=== PATIENT | female | born 1935 | race Caucasian/White ===

== ENCOUNTER 2023-12-25 14:37 | Emergency (ER) | payer OTHER ==
[~2023-12-25] VITALS: Ht 162.6 cm; Wt 63.5 kg
[2023-12-25 15:45] LABS: BASOPHILS % 0.5 % (0.0-1.0); EOSINOPHILS # (AUTO) 0.1 (0.0-0.4); HEMATOCRIT 37.4 % (34.2-44.1); HEMOGLOBIN 12.8 g/dL (12.0-16.0); LYMPHOCYTES # (AUTO) 1.9 (1.0-3.2); LYMPHOCYTES % 31.6 % (18.0-39.1); MEAN CORPUSCULAR HEMOGLOBIN 29.2 pg (28-32); MEAN CORPUSCULAR HGB CONC 34.2 g/dL (31-35); MEAN CORPUSCULAR VOLUME 85.4 fL (81-99); MONOCYTES # (AUTO) 0.4 (0.2-0.8); NEUTROPHILS # (AUTO) 3.6 (2.1-6.9); NEUTROPHILS % 59.7 % (38.7-80.0); PLATELET COUNT 237 x10e3/uL (140-360); RED BLOOD COUNT 4.38 x10e6/uL (3.6-5.1); RED CELL DISTRIBUTION WIDTH 13.8 % (11.7-14.4); WHITE BLOOD COUNT 5.99 x10e3/uL (4.8-10.8)
[2023-12-25 15:58] LABS: INR 0.86; PARTIAL THROMBOPLASTIN TIME 31.3 seconds (23.8-35.5); PROTHROMBIN TIME 11.9 seconds (11.9-14.5)
[2023-12-25 16:08] LABS: CREATINE KINASE 230 IU/L (29-168); MAGNESIUM 2.2 MG/DL (1.3-2.1)
[2023-12-25 16:10] LABS: ALBUMIN 3.8 g/dL (3.5-5.0); ALBUMIN/GLOBULIN RATIO 1.1 (0.8-2.0); ANION GAP 13.8 mmol/L (8-16); BILIRUBIN,TOTAL 0.3 mg/dL (0.2-1.2); CALCIUM 9.2 mg/dL (8.4-10.2); CREATININE, SERUM 0.71 mg/dL (0.57-1.11); POTASSIUM 3.8 mmol/L (3.5-5.1); TOTAL PROTEIN 7.3 g/dL (6.5-8.1)
[2023-12-25 16:16] LABS: TROPONIN I < 0.001 ng/mL (0-0.300)
[2023-12-25 17:26] VITALS: BP 136/80; PULSE 72; RESP 17; O2SAT 100
== END 2023-12-25 17:28 | disposition home or self-care (01) ==
LOC: ER 14:55
DX: R60.9 Edema, unspecified (principal); I10 Essential (primary) hypertension; I50.9 Heart failure, unspecified; E03.9 Hypothyroidism, unspecified; E78.5 Hyperlipidemia, unspecified; D64.9 Anemia, unspecified; G25.81 Restless legs syndrome
CPT/HCPCS: 36415; 71045; 80053; 82550; 83735; 83880; 84484; 85025; 85610; 85730; 93005; 93970; 99284

== ENCOUNTER 2025-05-30 16:47 | Emergency (ER) | payer MEDICARE ==
[~2025-05-30] VITALS: Ht 162.6 cm; Wt 64.4 kg
[2025-05-30 17:20] VITALS: TEMP 98
[2025-05-30] MEDS: HYDRALAZINE HCL 20 MG/ML VIAL IV ONE (19:57)
[2025-05-30] MEDS: HYDRALAZINE HCL 20 MG/ML VIAL IV STA (19:57)
[2025-05-30 20:04] LABS: BASOPHILS % 0.5 % (0.0-1.0); EOSINOPHILS % 1.7 % (0.0-6.0); LYMPHOCYTES % 27.2 % (18.0-39.1); MONOCYTES % 6.8 % (4.4-11.3); NEUTROPHILS % 63.6 % (38.7-80.0); RED CELL DISTRIBUTION WIDTH 14.4 % (11.7-14.4)
[2025-05-30 20:15] LABS: EST GLOMERULAR FILTRATION RATE 83.0 ML/MIN (>=60)
[2025-05-30 20:29] LABS: INR 0.8
[2025-05-30 20:30] VITALS: PULSE 119; RESP 21
[2025-05-30 20:51] VITALS: BP 181/91; PULSE 97; RESP 20; TEMP 97.7; O2SAT 97
== END 2025-05-30 20:56 | disposition short-term general hospital (02) ==
LOC: ER 18:05
DX: S06.6X0A Traumatic subarachnoid hemorrhage without loss of consciousness, initial encounter (principal); S02.2XXA Fracture of nasal bones, initial encounter for closed fracture; W01.198A Fall on same level from slipping, tripping and stumbling with subsequent striking against other object, initial encounter; I11.0 Hypertensive heart disease with heart failure; I50.9 Heart failure, unspecified; E03.9 Hypothyroidism, unspecified; E78.5 Hyperlipidemia, unspecified; M19.90 Unspecified osteoarthritis, unspecified site; D64.9 Anemia, unspecified
CPT/HCPCS: 36415; 70450; 70486; 72125; 80048; 85025; 85610; 85730; 99284; J0360